=== PATIENT | male | born 1995 | race Caucasian/White ===

== ENCOUNTER 2017-03-02 03:02 | Emergency (ER) | payer OTHER ==
[~2017-03-02] VITALS: Ht 195.6 cm; Wt 136.4 kg
[~2017-03-02 03:02] MED LIST: INSU100I18 SUBQ; INSU100V7 SUBQ
[2017-03-02 03:06] VITALS: BP 140/97; PULSE 84; RESP 18; O2SAT 98
[2017-03-02] MEDS ORDERED: Tetracaine 0.5% 4 mL Ophthalmic Solution ONE (03:15)
[2017-03-02] MEDS ORDERED: Fluorescein 0.6 mg Ophthalmic Strip ONE (04:47)
[2017-03-02] MEDS ORDERED: Fluorescein 0.6 mg Ophthalmic Strip BOTH_EYES ONE (04:50)
--- NOTE | 2017-03-02 04:51 | ED.REPORT ---
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 He states he was wearing eye protection, and he was not the one welding. He denies foreign body sensation just says that his eyes equally feel burning and light makes it worse. He has never had this happen before. He was not wearing a electron beam welder's beckman. Nursing Notes Stated Complaint: EYE INJURY/WELDING Chief Complaint: Eye Nursing Notes Reviewed: Yes Allergies: Coded Allergies: No Known Allergies (Unverified , 03/02/17) Scheduled Insulin Glargine (Lantus U100 Insulin Vial) 100 Unit/Ml Vial 80 UNIT SUBQ QPM- INSULIN Scheduled PRN Insulin Lispro (HumaLOG U100 Insulin Pen) 100 Unit/1 Ml Insuln.pen 1 UNIT SUBQ DIRECTED PRN PRN sliding scale Blood Sugar Lispro Correction <151 0 units 151-175 1 unit 176-200 2 units 201-225 3 units 226-250 4 units 251-275 5 units 276-300 6 units 301-325 7 units 326-350 8 units 351-375 9 units 376-400 10 units >400 12 units Check blood sugars before meals and at bedtime. Use correction factor only before meals. General Time Seen by MD: 04:27 Chief Complaint Both eyes affected Hx Obtained From: Patient Arrived By: Walk-in Sudden in Onset?: Yes Symptom Duration: Since onset Caused by: Foreign body in eye Recent Healthcare: No recent doctor visit, No recent hospitalization Similar Sx Previous: No Past Medical History Past Medical History DM-I Obesity Reports: Diabetes mellitus (Type I) Past Surgical History Reports: Tonsillectomy Family History father had brain cancer, survived. Smoking History Never Smoker Social History Lives with family. Alcohol Use: Denies alcohol use Drug Use: Denies drug use Other Social History: Good social support Ambulatory Status Independent Review of Systems Eyes: Reports: Eye pain bilateral, Photophobia Complete sys rev & neg: except as marked. Physical Exam General: Laying in bed, no apparent distress. HEENT: Normocephalic, redness around eyes and cheeks, neck is supple without lymphadenopathy. Split lamp exam: Erythematous face and lids, sclera is injected, no discharge no involvement of the tarsal conjunctiva cornea mildly hazy, superficial punctate staining with fluorescein in the interpalpebral fissure. Cardiovascular: Regular rate and rhythm, no clicks murmurs rubs, peripheral pulses 2/4 equal bilaterally Pulmonary: Clear to auscultation bilaterally, no W/R/R. Abdominal: Soft to palpation, bowel sounds present 4, no hepatosplenomegaly. Negative rebound. Extremities: No edema appreciated. No tenderness, asymmetry. Neuro: Neurologically grossly intact, strength is equal bilaterally upper and lower extremities. MSK:Able to move extremities on their own volition, strength 5 out of 5 equal bilaterally to upper and lower extremities. Initial Vital Signs Vital Signs (First) Date Time Temp Pulse Resp B/P Pulse Ox O2 Delivery O2 Flow Rate FiO2 03/02/17 03:06 36.6 84 18 140/97 98 Room Air Initial VS: Reviewed General/Constitutional: Awake, Alert Skin: Atraumatic, Color NL, No rash Neurologic: Oriented X3, Speech NL, No motor deficits, No sensory deficits Neck: Atraumatic, Supple, Full range of motion Upper Extremity / MS: Atraumatic, Full range of motion Lower Extremity / Pelvis / MS: Atraumatic, Full range of motion Psychiatric: Affect NL, Mood NL Re-Eval/Medical Decision Med Decision/Clinical Course Physical exam and history is consistent with photokeratitis secondary to being in proximity to welding. Findings were discussed with the patient and his mother, as well as the treatment plan, patient and mother both stated understanding and agreement. Patient was instructed to follow-up with ophthalmology which he said he would. Source of Hx: Old records Re-Evaluation/Progress : Time of Eval: 04:45 Re-Evaluation/Progress Note: Rechecked patient. Gathered more past medical history and information. Further examined eyes. Discussed diagnosis, plan for treatment and discharge. The patient understands and agrees to the plan for discharge and treatment. All questions were addressed. Counseled Regarding: Diagnosis, Need for follow-up, When/why to return to ED Discharge & Departure Primary Impression: Photokeratitis of both eyes Disposition: Home Discharge Condition All VS Reviewed: Yes Condition: Stable Additional Instructions: Thank you for entrusting us with your care today. History and evaluation today are consistent with photokeratitis, "welders flash. " Treatment for this is symptomatic and takes time to heal. You're being given an antibiotic erythromycin, and needs to be applied 3 times a day to your eyes for 5 days. You are also being given a prescription for pain, Percocet, please take 1 pill as needed every 6-8 hours for pain. Do not take while operating machinery, driving, do not take with alcohol. Please follow-up with [facility] regarding today's visit and your current symptoms. I also recommend you follow-up with Dr. Miller. If you have worsening of pain, abrupt loss of vision, PC black dots, or curtains coming over your field division please report to the emergency department immediately. Please do not drive until symptoms have completely resolved. Referrals: Elyssa Miller MD (PCP) Taisha Schultz MD Attending Statement As attending of record for this patient, I conducted an independent history and physical exam, and I concur with the documentation per the resident note above, and as amended. copies to: Taisha Schultz MD; Elyssa Miller MD, Noah M DO Mar 02, 2017 04:51 Terra Rubio Mar 02, 2017 05:00 Darren Ordaz MD Mar 02, 2017 07:33
[2017-03-02] MEDS ORDERED: oxyCODONE-Acetamin 5-325 mg Tablet PO STA (05:02)
[2017-03-02] MEDS ORDERED: _oxyCODONE/APAP 5-325 mg Tablet PO PRN (05:05)
[2017-03-02] MEDS ORDERED: _Erythromycin 0.5% Oph Oint 3.5 gm AFFECT_EYE SCH (08:30)
== END 2017-03-02 05:39 | disposition home or self-care (01) ==
LOC: SED 03:02
DX: H16.133 Photokeratitis, bilateral (principal); W89.0XXA Exposure to welding light (arc), initial encounter; Y92.9 Unspecified place or not applicable; Y93.89 Activity, other specified; Y99.8 Other external cause status; E11.9 Type 2 diabetes mellitus without complications; Z79.4 Long term (current) use of insulin